=== PATIENT | female | born 1965 | race Caucasian/White ===

== ENCOUNTER 2017-04-05 20:02 | Emergency (ER) | payer OTHER ==
[2017-04-05] MEDS ORDERED: SUMAtriptan 6 MG/0.5 ML SDV SUBCUT ONE (20:20)
[2017-04-05] MEDS ORDERED: Ondansetron 8 MG Tab.DIS PO ONE (20:20)
--- NOTE | 2017-04-05 20:28 | EDM.PDOC ---
ED HPI GENERAL MEDICAL PROBLEM - General Chief Complaint: Headache Stated Complaint: MIGRAINE Time Seen by Provider: 04/05/17 20:15 Source of Information: Reports: Patient, Family History Limitations: Reports: Other (headache) - History of Present Illness INITIAL COMMENTS - FREE TEXT/NARRATIVE: 51 y.o.w.f with a h/o migraine H/A came to the ed due to worst H/A in her live. No recent trauma, severe nausea and epigastric pain, no vomiting. 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 Onset: Gradual Onset Date: 04/05/17 Onset Time: 13:00 Headache Pain Score (Numeric/FACES): 10 - Related Data Allergies Allergy/AdvReac Type Severity Reaction Status Date / Time clopidogrel [From Plavix] Allergy Severe Swelling Verified 04/05/17 20:09 contrast dye Allergy Swelling Uncoded 04/05/17 20:09 Home Meds: Home Meds SUMAtriptan [Imitrex] 50 mg PO BID 04/05/17 [History] buPROPion [Wellbutrin] 100 mg PO BID 04/05/17 [History] fluvoxaMINE [Luvox] 100 mg PO BID 04/05/17 [History] Past Medical History Neurological History: Reports: Migraines Psychiatric History: Reports: Anxiety, Depression, OCD Social & Family History - Tobacco Use Smoking Status *Q: Never Smoker - Caffeine Use Caffeine Use: Reports: Coffee - Recreational Drug Use Recreational Drug Use: No ED ROS GENERAL - Review of Systems Review Of Systems: See Below Constitutional: Reports: Decreased Appetite HEENT: Reports: No Symptoms Respiratory: Reports: No Symptoms Cardiovascular: Reports: No Symptoms Endocrine: Reports: No Symptoms GI/Abdominal: Reports: Abdominal Pain (epigastric), Nausea : Reports: No Symptoms Musculoskeletal: Reports: No Symptoms Skin: Reports: No Symptoms Neurological: Reports: Headache Psychiatric: Reports: No Symptoms Hematologic/Lymphatic: Reports: No Symptoms Immunologic: Reports: No Symptoms - Physical Exam Exam: See Below Exam Limited By: Other (H/A) General Appearance: Alert, WD/WN, Moderate Distress Eye Exam: Bilateral Eye: Normal Inspection Ears: Normal External Exam Nose: Normal Inspection Throat/Mouth: Normal Inspection Head Exam: Atraumatic, Normocephalic Neck: Normal Inspection, Supple, Lymphadenopathy (L) (post neck) Respiratory/Chest: No Respiratory Distress, Lungs Clear, Normal Breath Sounds Cardiovascular: Normal Peripheral Pulses, Regular Rate, Rhythm, No Edema GI/Abdominal: Normal Bowel Sounds, Soft, Tender (epigastric) (Female) Exam: Deferred Rectal (Female) Exam: Deferred Neuro Exam (Abbreviated): Alert, Oriented, CN II-XII Intact, Normal Cognition, Normal Gait Back Exam: Normal Inspection, Full Range of Motion Extremities: Normal Inspection, Normal Range of Motion, Non-Tender, No Pedal Edema Psychiatric: Normal Affect, Normal Mood Skin Exam: Warm, Dry, Intact, Normal Color, No Rash Course - Vital Signs Text/Narrative:: 51 y.o.w.f with a h/o migraine H/A came to the ed due to worst H/A in her live. No recent trauma, severe nausea and epigastric pain, no vomiting. 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 PE: Migraine headache, nausea, epigastric pain Labs: CBC, BMP WNL Imaging: CT Head: NAD Impression: Migraine H/A with nausea, Dehydration. Tx: Imitrex im. Zofran, Toradol, Solumedrol, Protonix and NS Reexam: Pt had am episode for 5 min of jaw and tongue swelling after protonix was given. The symptoms subsided spontaneously. Pain, nausea and abd. pain subsided 90% on D/C. Pt requested to be D/C'd. She refused any kind of medical prescriptions. She has medications at home. Plan: D/C with instructions Last Recorded V/S: Last Vital Signs Temp 36.6 C 04/05/17 20:15 Pulse 66 04/05/17 22:20 Resp 20 04/05/17 20:15 BP 133/82 04/05/17 22:20 Pulse Ox 100 04/05/17 20:15 - Orders/Labs/Meds Orders: Active Orders 24 hr Category Date Time Status Head wo Cont [CT] Stat Exams 04/05/17 20:43 Taken Saline Lock Insert [OM.PC] Routine Oth 04/05/17 20:53 Ordered Labs: Laboratory Tests 04/05/17 04/05/17 Range/Units 21:20 21:20 WBC 10.1 (4.5-12.0) X10-3/uL RBC 5.42 H (3.23-5.20) x10(6)uL Hgb 16.4 H (11.5-15.5) g/dL Hct 49.7 (30.0-51.3) % MCV 91.6 (80-96) fL MCH 30.3 (27.7-33.6) pg MCHC 33.1 (32.2-35.4) g/dL RDW 12.7 (11.5-15.5) % Plt Count 291 (125-369) X10(3)uL MPV 8.3 (7.4-10.4) fL Neut % (Auto) 58.6 (46-82) % Lymph % (Auto) 34.9 (13-37) % [place] % (Auto) 5.3 (4-12) % Eos % (Auto) 1 (1.0-5.0) % Baso % (Auto) 1 (0-2) % Neut # (Auto) 5.9 (1.6-8.3) # Lymph # (Auto) 3.5 (0.6-5.0) # [place] # (Auto) 0.5 (0.0-1.3) # Eos # (Auto) 0.1 (0.0-0.8) # Baso # (Auto) 0.1 (0.0-0.2) # Sodium 140 (135-145) mmol/L Potassium 3.0 L (3.5-5.3) mmol/L Chloride 106 (100-110) mmol/L Carbon Dioxide 19 L (23-29) mmol/L BUN 13 (5-20) mg/dL Creatinine 0.9 (0.6-1.3) mg/dL Est Cr Clr Drug Dosing 77.28 mL/min Estimated GFR (MDRD) > 60 (>60) BUN/Creatinine Ratio 14.4 (9-20) Glucose 109 (80-116) mg/dL Calcium 10.6 H (8.6-10.2) mg/dL Meds: Medications Discontinued Medications Generic Name Dose Route Start Last Admin Trade Name Freq PRN Reason Stop Dose Admin Diphenhydramine HCl 50 mg 04/05/17 21:22 04/05/17 21:34 Benadryl IVPUSH 04/05/17 21:23 Not Given ONETIME ONE Epinephrine HCl 0.3 mg 04/05/17 21:22 04/05/17 21:35 Adrenalin 1:1000 IM 04/05/17 21:23 Not Given ONETIME ONE Sodium Chloride 1,000 mls @ 999 mls/hr 04/05/17 21:25 04/05/17 21:33 Normal Saline IV 04/05/17 22:25 999 mls/hr .BOLUS ONE Administration Ketorolac Tromethamine 30 mg 04/05/17 20:43 04/05/17 20:54 Toradol IVPUSH 04/05/17 20:44 30 mg ONETIME ONE Administration Methylprednisolone Sodium Succinate 125 mg 04/05/17 20:43 04/05/17 20:57 Solu-Medrol IVPUSH 04/05/17 20:44 125 mg ONETIME ONE Administration Metoclopramide HCl 10 mg 04/05/17 20:43 04/05/17 20:54 Reglan IV 04/05/17 20:44 10 mg ONETIME STA Administration Ondansetron HCl 8 mg 04/05/17 20:20 04/05/17 20:26 Zofran Odt PO 04/05/17 20:21 8 mg ONETIME ONE Administration Pantoprazole Sodium 40 mg 04/05/17 20:43 04/05/17 21:07 Protonix Iv IVPUSH 04/05/17 20:44 40 mg ONETIME ONE Administration Sodium Chloride 10 ml 04/05/17 20:53 04/05/17 21:09 Saline Flush FLUSH 10 ml ASDIRECTED PRN Administration Keep Vein Open Sumatriptan Succinate 6 mg 04/05/17 20:20 04/05/17 20:24 Imitrex SUBCUT 04/05/17 20:21 6 mg ONETIME ONE Administration Departure - Departure Time of Disposition: 22:07 Disposition: Home, Self-Care 01 Condition: Good Clinical Impression: Dehydration Migraine aura, persistent Qualifiers: Status migrainosus presence: without status migrainosus Intractability: intractable Qualified Code(s): G43.519 - Persistent migraine aura without cerebral infarction, intractable, without status migrainosus Gastritis Qualifiers: Gastritis type: unspecified gastritis Chronicity: acute Gastritis bleeding: without bleeding Qualified Code(s): K29.00 - Acute gastritis without bleeding - Discharge Information Instructions: Migraine Headache, [id number] Referrals: PCP,None [Primary Care Provider] - Forms: ED Department Discharge, ED Return to Work/School Form Additional Instructions: Please increase water intake, please take your meds as recommended, avoid spicy food, please came back to the ed if your symptoms get worse acutely - My Orders Last 24 Hours: My Active Orders 04/05/17 20:43 Head wo Cont [CT] Stat 04/05/17 20:53 Saline Lock Insert [OM.PC] Routine - Assessment/Plan Last 24 Hours: My Active Orders 04/05/17 20:43 Head wo Cont [CT] Stat 04/05/17 20:53 Saline Lock Insert [OM.PC] Routine
[2017-04-05] MEDS ORDERED: Metoclopramide 10 MG/2 ML SDV IV STA (20:43)
[2017-04-05] MEDS ORDERED: Pantoprazole 40 MG Vial IVPUSH ONE (20:43)
[2017-04-05] MEDS ORDERED: methylPREDNISolone Sodium Succinate 125 MG/2 ML SDV IVPUSH ONE (20:43)
[2017-04-05] MEDS ORDERED: Ketorolac 30 MG/ML SDV IVPUSH ONE (20:43)
[2017-04-05] MEDS: Sodium Chloride 0.9% 10 ML Syringe FLUSH PRN ×4 (20:57→21:09)
[2017-04-05] MEDS ORDERED: diphenhydrAMINE 50 MG/ML SDV IVPUSH ONE (21:22)
[2017-04-05] MEDS ORDERED: EPINEPHrine 1 MG/ML SDV IM ONE (21:22)
[2017-04-05] MEDS ORDERED: Sodium Chloride 0.9% 1,000 ML IV ONE (21:25)
[2017-04-05 22:21] VITALS: BP 133/82
== END 2017-04-05 22:20 | disposition home or self-care (01) ==
LOC: FB.ED 20:02
DX: G43.519 Persistent migraine aura without cerebral infarction, intractable, without status migrainosus (principal); E86.0 Dehydration; K29.00 Acute gastritis without bleeding; F41.8 Other specified anxiety disorders; F42.9 Obsessive-compulsive disorder, unspecified; Z88.8 Allergy status to other drugs, medicaments and biological substances; Z79.899 Other long term (current) drug therapy
CPT/HCPCS: 36415; 70450; 80048; 85025; 96361; 96372; 96374; 96375; 99284; A9270; C9113; J1885; J2765; J2930; J3030; J7040; J7050